=== PATIENT | female | born 1980 | race Caucasian/White ===

== ENCOUNTER 2017-07-09 | Emergency (ER) | payer OTHER, SELFPAY ==
--- NOTE | 2017-07-09 20:46 | ER ---
Nurse's Notes [facility] Name: Adina Block Age: 36 yrs Sex: Female : 1980 Arrival Date: 07/09/2017 Time: 19:16 Bed 12 Private MD: Diagnosis: Insect bite left cheek Presentation: 07/09 19:35 Presenting complaint: Patient states: that she thinks she got bitten by something on fc her left cheek. Area is swollen and tender to touch. Denies any vision issues. But states that it is making her nauseated. Transition of care: patient was not received from another setting of care. Onset of symptoms was July 09, 2017. Care prior to arrival: Medication(s) given: Tylenol, last at 1530. 19:35 Method Of Arrival: Ambulatory 19:35 Acuity: RINA 3 Triage Assessment: 19:38 Bite description: bite sustained to left cheek is from insect was sustained 1 day ago. fc by an unknown animal, animal information: vaccination(s) is not applicable. General: Appears uncomfortable, slender, Behavior is calm, cooperative, appropriate for age. Pain: Complains of pain in left cheek and left eye Quality of pain is described as aching, Pain began 1 day ago. Is continuous. EENT: left eye socket pain. Neuro: Level of Consciousness is awake, alert, obeys commands, Oriented to person, place, time, situation. Cardiovascular: No deficits noted. Respiratory: No deficits noted. GI: No deficits noted. : No deficits noted. Derm: Skin is pink, warm \T\ dry. red raised bump to left upper cheek. Musculoskeletal: Circulation, motion, and sensation intact. Capillary refill < 3 seconds, Range of motion: intact in all extremities. 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 - Social history:: Smoking status: Patient uses tobacco products, smokes one-half pack cigarettes per day, Patient/guardian denies using alcohol, street drugs. Screenin:45 Abuse screen: Denies threats or abuse. Denies injuries from another. Nutritional ao screening: No deficits noted. Tuberculosis screening: No symptoms or risk factors identified. Fall Risk None identified. Assessment: 20:44 General: Appears in no apparent distress. comfortable, Behavior is calm, cooperative, ao appropriate for age. Pain: Denies pain. Neuro: Level of Consciousness is awake, alert, obeys commands, Oriented to person, place, time, situation, Appropriate for age Moves all extremities. Speech is normal, Facial symmetry appears normal. Cardiovascular: Patient's skin is warm and dry. Respiratory: Airway is patent Respiratory effort is even, unlabored, Respiratory pattern is regular, symmetrical. GI: Abdomen is non-distended. : No signs and/or symptoms were reported regarding the genitourinary system. EENT: No signs and/or symptoms were reported regarding the EENT system. Derm: Skin is intact, Rash noted that is red, on face. 20:55 Reassessment: Patient is alert, oriented x 3, equal unlabored respirations, skin bb warm/dry/pink. pt verbalized understanding of and agrees to plan of care discharge instructions given pt ambulated with steady gait to exit accompanied by family. Vital Signs: 19:37 BP 119 / 76; Pulse 86; Resp 18; Temp 98.6(O); Pulse Ox 100% on R/A; Weight 47.63 kg fc (R); Height 5 ft. 2 in. (157.48 cm) (R); Pain 6/10; 19:37 Body Mass Index 19.20 (47.63 kg, 157.48 cm) fc ED Course: 19:16 Patient arrived in ED. ds1 19:36 Triage completed. fc 19:37 Arm band placed on left wrist. Patient placed in waiting room, Patient notified of wait fc time. 20:36 Stiven River MD is Attending Physician. pkanam 20:43 Marcio Frazier, GRAEME is Primary Nurse. ao 20:45 Patient has correct armband on for positive identification. Pulse ox on. NIBP on. ao 20:56 No provider procedures requiring assistance completed. Patient did not have IV access bb during this emergency room visit. Administered Medications: No medications were administered Outcome: 20:46 Discharge ordered by . pkl 20:56 Discharged to home ambulatory, with family. alon 20:56 Condition: stable 20:56 Discharge instructions given to patient, family, Instructed on discharge instructions, follow up and referral plans. medication usage, Demonstrated understanding of instructions, follow-up care, medications, Prescriptions given X 2. 20:56 Patient left the ED. bb Signatures: Stiven River MD MD pkl Chretien, Felicia, RN RN Charito Sarmiento ds1 Kelsey Gonzalez RN RN Marcio Marte RN RN ao
--- NOTE | 2017-07-09 20:46 | EDPHYS ---
Physician Documentation [facility] Name: Adina Block Age: 36 yrs Sex: Female : 1980 Arrival Date: 07/09/2017 Time: 19:16 Bed 12 Private MD: ED Physician Stiven River HPI: 07/09 20:40 This 36 yrs old Female presents to ER via Ambulatory with complaints of pkl Insect Bite. 20:40 The patient was bitten on the left cheek, by unknown insect. Onset: The pkl symptoms/episode began/occurred today. Associated signs and symptoms: Pertinent positives: swelling at site, nausea. 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 - Social history:: Smoking status: Patient uses tobacco products, smokes one-half pack cigarettes per day, Patient/guardian denies using alcohol, street drugs. ROS: 20:40 Eyes: Negative for injury, pain, redness, and discharge, ENT: Negative for injury, pkl pain, and discharge, Neck: Negative for injury, pain, and swelling, Cardiovascular: Negative for chest pain, palpitations, and edema, Respiratory: Negative for shortness of breath, cough, wheezing, and pleuritic chest pain, Abdomen/GI: Negative for abdominal pain, nausea, vomiting, diarrhea, and constipation, Back: Negative for injury and pain, : Negative for injury, bleeding, discharge, and swelling, MS/Extremity: Negative for injury and deformity. 20:40 Skin: Positive for swelling, of the left cheek. 20:40 Neuro: Negative for altered mental status. Exam: 20:40 Eyes: Pupils equal round and reactive to light, extra-ocular motions intact. Lids and pkl lashes normal. Conjunctiva and sclera are non-icteric and not injected. Cornea within normal limits. Periorbital areas with no swelling, redness, or edema. ENT: Nares patent. No nasal discharge, no septal abnormalities noted. Tympanic membranes are normal and external auditory canals are clear. Oropharynx with no redness, swelling, or masses, exudates, or evidence of obstruction, uvula midline. Mucous membranes moist. 20:40 Head/face: Noted is swelling, that is mild, insect bite left cheek. 20:40 Neck: Exam negative for nuchal rigidity. 20:40 Chest/axilla: Exam negative for acute changes. 20:40 Cardiovascular: Rate: normal, Rhythm: regular. 20:40 Respiratory: the patient does not display signs of respiratory distress, Respirations: normal, Breath sounds: are clear throughout. 20:40 Abdomen/GI: Bowel sounds: normal, Palpation: abdomen is soft and non-tender, in all quadrants. 20:40 Back: Exam negative for acute changes. 20:40 : Exam negative for acute changes. 20:40 Musculoskeletal/extremity: Exam is negative for acute changes. 20:40 Neuro: Orientation: is normal, Mentation: is normal, Memory: is normal, Cranial nerves: grossly normal, Motor: is normal, Gait: is steady. Vital Signs: 19:37 BP 119 / 76; Pulse 86; Resp 18; Temp 98.6(O); Pulse Ox 100% on R/A; Weight 47.63 kg fc (R); Height 5 ft. 2 in. (157.48 cm) (R); Pain 6/10; 19:37 Body Mass Index 19.20 (47.63 kg, 157.48 cm) fc MDM: 20:36 Patient medically screened. pkl 20:40 Data reviewed: vital signs, nurses notes. pkl Administered Medications: No medications were administered Disposition: 07/09/17 20:46 Discharged to Home. Impression: Insect bite left cheek. - Condition is Stable. - Prescriptions for Zofran 4 mg Oral Tablet - take 1 tablet by ORAL route every 12 hours As needed; 6 tablet. Zithromax Z- Jalil 250 mg Oral Tablet - take 1 tablet by ORAL route as directed for 5 days Day 1 - take two (2) tablets one time. Day 2, 3, 4 , 5 take one (1) tablet once daily.; 6 tablet. - Work release form, Medication Reconciliation Form, Thank You Letter, Antibiotic Education, Prescription Opioid Use form. - Follow up: Private Physician; When: 2 - 3 days; Reason: Re-evaluation by your physician. - Problem is new. - Symptoms have improved. Signatures: Stiven River MD MD pkl Chretien, Felicia, RN RN Kelsey Mitchell RN RN bb
== END 2017-07-09 20:56 | disposition home or self-care (01) ==
CPT/HCPCS: 99283

== ENCOUNTER 2017-08-27 18:39 | Emergency (ER) | payer OTHER, SELFPAY ==
[2017-08-27 20:16] LABS: Urine Blood 1+ (NEG); Urine Glucose NEGATIVE (NEG); Urine Protein NEGATIVE (NEG); Urine Specific Gravity <1.005 (1.005-1.030)
[2017-08-27 20:36] LABS: Urine Appearance CLEAR; Urine Bilirubin NEGATIVE (NEG); Urine Blood 1+ (NEG); Urine Color YELLOW; Urine Glucose NEGATIVE (NEG); Urine Protein NEGATIVE (NEG); Urine Specific Gravity <=1.005 (1.005-1.030); Urine Urobilinogen 0.2 mg/dL (0.2-1.0); Urine pH 6.5 (5.0-7.0)
[2017-08-27 21:03] LABS: Urine Microscopic Reflex ORDER UMIC
[2017-08-27 21:06] LABS: Urine Bacteria NONE SEEN /HPF (<20); Urine RBC <5 /HPF (NONE SEEN)
[2017-08-27 21:07] LABS: Urine Culture Reflex Order NOT NEEDED
[2017-08-27] MEDS ORDERED: KETOROLAC 30 MG/ML INJ ONE (21:22)
--- NOTE | 2017-08-27 22:04 | RAD REPORT ---
EXAM DESCRIPTION: CT - Stone Protocol - 08/27/2017 9:37 pm CLINICAL HISTORY: Back pain, flank pain COMPARISON: None. TECHNIQUE: Axial 5 mm thick images were obtained without oral or IV contrast. The [id number] span s the entirety of the system partially obscuring uppermost abdomen and lung bases. All CT scans are performed using dose optimization technique as appropriate and may include automated exposure control or mA/KV adjustment according to patient size. FINDINGS: Mild right-sided hydronephrosis secondary to a 3 millimeter UVJ calculus. No left-sided ob structing calculi. Punctate 1 mm caliceal or pyramid calculi noted on the right. Right kidney is slig htly edematous when compared to the left. No suspicious renal masses. Isodense masses and pyelonephri tis are not excluded on a stone protocol CT scan. No urinary bladder suspicious finding. Multiple phl eboliths along the pelvic floor. Imaged portions of the liver, spleen and pancreas show no suspicious findings on non-contrast imaging . No gallbladder or biliary tree abnormality identified. No significant adrenal finding. No suspicious bowel findings. No hernia, mass or bulky lymphadenopathy noted. No free air, free fluid or inflammatory stranding. No significant bony abnormality. IMPRESSION: Mild right-sided hydronephrosis secondary to a 3 mm UVJ calculus. Isodense masses and pyelonephritis are not excluded on stone protocol technique.
--- NOTE | 2017-08-27 22:27 | ER ---
Nurse's Notes [facility] Name: Adina Block Age: 36 yrs Sex: Female : 1980 Arrival Date: 08/27/2017 Time: 18:40 Bed 16 Private MD: Diagnosis: Calculus of ureter Presentation: 08/27 19:02 Presenting complaint: Presenting complaint: Patient states: Lower abdominal and hb bilateral lower back pain since this morning. Also c/o N/V. 19:05 Transition of care: patient was not received from another setting of care. Onset of hb symptoms was August 27, 2017. 19:05 Method Of Arrival: Ambulatory hb 19:05 Acuity: RINA 3 hb 22:41 Initial Sepsis Screen: Does the patient meet any 2 criteria? No. Patient's initial bs1 sepsis screen is negative. Does the patient have a suspected source of infection? No. Patient's initial sepsis screen is negative. Care prior to arrival: None. 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 - Social history:: Smoking status: Patient uses tobacco products, smokes one pack cigarettes per day. Screenin:41 Abuse screen: Denies threats or abuse. Denies injuries from another. Nutritional bs1 screening: No deficits noted. Tuberculosis screening: No symptoms or risk factors identified. Fall Risk None identified. Assessment: 19:58 General: Appears in no apparent distress. uncomfortable, slender, Behavior is bs1 cooperative, anxious, Smells of smoke. Pain: Complains of pain in right/left lower abdomen Pain radiates to right flank Pain currently is 10 out of 10 on a pain scale. Neuro: Level of Consciousness is awake, alert, obeys commands, Oriented to person, place, time, situation, Appropriate for age Stitcher Special Machine are equal bilaterally Moves all extremities. Gait is steady, Speech is normal, Facial symmetry appears normal, Pupils are PERRLA. Cardiovascular: Denies chest pain, shortness of breath, Heart tones S1 S2 present Capillary refill < 3 seconds Patient's skin is warm and dry. Respiratory: Airway is patent Trachea midline Respiratory effort is even, unlabored, Breath sounds are clear bilaterally. GI: Abdomen is flat, Bowel sounds hypoactive in right upper quadrant, left upper quadrant, right lower quadrant and left lower quadrant Abdomen is tender to palpation in right lower quadrant and left lower quadrant Reports lower abdominal pain, nausea. : Reports burning with urination. EENT: No deficits noted. No signs and/or symptoms were reported regarding the EENT system. Derm: Skin is intact, Skin is pink, warm \T\ dry. Musculoskeletal: Circulation, motion, and sensation intact. Capillary refill < 3 seconds, Range of motion: intact in all extremities. 21:00 Reassessment: No changes from previously documented assessment. Patient and/or family bs1 updated on plan of care and expected duration. Pain level reassessed. Patient is alert, oriented x 3, equal unlabored respirations, skin warm/dry/pink. Pending results of CT scan. 22:30 Reassessment: Patient appears in no apparent distress at this time. Patient and/or bs1 family updated on plan of care and expected duration. Pain level reassessed. Patient is alert, oriented x 3, equal unlabored respirations, skin warm/dry/pink. Patient states feeling better. Vital Signs: 19:06 BP 151 / 70; Pulse 85; Resp 16; Temp 98.6; Pulse Ox 100% on R/A; Weight 49.9 kg; Height hb 5 ft. 2 in. (157.48 cm); Pain 8/10; 20:00 BP 124 / 80; Pulse 78; Resp 16; Pulse Ox 100% on R/A; bs1 21:00 BP 102 / 60; Pulse 70; Resp 16; Pulse Ox 99% on R/A; bs1 22:00 BP 108 / 67; Pulse 61; Pulse Ox 100% on R/A; bs1 22:15 BP 108 / 59; Pulse 69; Resp 16; Temp 98.3(O); Pulse Ox 100% on R/A; Pain 0/10; bs1 19:06 Body Mass Index 20.12 (49.90 kg, 157.48 cm) hb ED Course: 18:40 Patient arrived in ED. al2 19:06 Triage completed. hb 19:06 Arm band placed on right wrist. hb 19:46 Charanjit Barnes MD is Attending Physician. tw4 19:50 Cayden Gordon, RN is Primary Nurse. jd3 20:45 No provider procedures requiring assistance completed. Inserted saline lock: 22 gauge bs1 in left antecubital area, using aseptic technique. 21:37 CT completed. Patient tolerated procedure well. Patient moved to CT via wheelchair. kw1 Patient moved back from CT. 21:37 Stone Protocol In Process Unspecified. EDMS 22:26 Mayra Vences MD is Referral Physician. tw4 22:41 Patient has correct armband on for positive identification. Bed in low position. Call bs1 light in reach. Side rails up X 1. Pulse ox on. NIBP on. 22:42 IV discontinued, bleeding controlled, No redness/swelling at site. Pressure dressing bs1 applied. Administered Medications: 21:46 Drug: TORadol 60 mg {Note: Given IV.} Route: IM; Site: Other; bs1 22:45 Follow up: Response: No adverse reaction bs1 Outcome: 22:26 Discharge ordered by . tw4 22:42 Discharged to home ambulatory, with family, with significant other. bs1 22:42 Condition: stable 22:42 Discharge instructions given to patient, Instructed on discharge instructions, follow up and referral plans. medication usage, Demonstrated understanding of instructions, follow-up care, medications, Prescriptions given X 2. 22:46 Patient left the ED. bs1 Signatures: Dispatcher [employer] EDMS Lety Boyce RN RN hb Cayden Gordon, RN RN jTracy Shelley kw1 Michell Zamudio RN RN bs1 Cindy Thurman Terrence, MD MD tw4 Corrections: (The following items were deleted from the chart) 19:06 19:02 Presenting complaint: hb hb
--- NOTE | 2017-08-27 22:27 | EDPHYS ---
Physician Documentation [facility] Name: Adina Block Age: 36 yrs Sex: Female : 1980 Arrival Date: 08/27/2017 Time: 18:40 Bed 16 Private MD: ED Physician Charanjit Barnes HPI: 08/27 22:34 This 36 yrs old Female presents to ER via Ambulatory with complaints of Low tw4 Back Pain, Abdominal Pain. 22:34 This 36 yrs old Female presents to ER via Ambulatory with complaints of Low tw4 Back Pain, Abdominal Pain. 22:34 The patient presents with pain that is acute, with no known mechanism of injury. The tw4 symptoms are located in the low back. The pain does not radiate. The problem was sustained without known cause. Onset: The symptoms/episode began/occurred today. Modifying factors: The patient symptoms are alleviated by nothing, the patient symptoms are aggravated by any movement. Associated signs and symptoms: The patient has no apparent associated signs or symptoms. Severity of symptoms: At their worst the symptoms were moderate, in the emergency department the symptoms are unchanged. The patient has not experienced similar symptoms in the past. 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 - Social history:: Smoking status: Patient uses tobacco products, smokes one pack cigarettes per day. ROS: 22:34 Constitutional: Negative for fever, chills, and weight loss, Eyes: Negative for injury, tw4 pain, redness, and discharge, Cardiovascular: Negative for chest pain, palpitations, and edema, Respiratory: Negative for shortness of breath, cough, wheezing, and pleuritic chest pain, Abdomen/GI: Negative for abdominal pain, nausea, vomiting, diarrhea, and constipation. 22:34 MS/Extremity: Negative for injury and deformity, Neuro: Negative for headache, weakness, numbness, tingling, and seizure, Psych: Negative for depression, anxiety, suicide ideation, homicidal ideation, and hallucinations. 22:34 Back: Positive for flank pain, on the right, radiated pain. Exam: 22:34 Constitutional: This is a well developed, well nourished patient who is awake, alert, tw4 and in no acute distress. Chest/axilla: Normal chest wall appearance and motion. Nontender with no deformity. No lesions are appreciated. Cardiovascular: Regular rate and rhythm with a normal S1 and S2. No gallops, murmurs, or rubs. Normal PMI, no JVD. No pulse deficits. Respiratory: Lungs have equal breath sounds bilaterally, clear to auscultation and percussion. No rales, rhonchi or wheezes noted. No increased work of breathing, no retractions or nasal flaring. Abdomen/GI: Soft, non-tender, with normal bowel sounds. No distension or tympany. No guarding or rebound. No evidence of tenderness throughout. MS/ Extremity: Pulses equal, no cyanosis. Neurovascular intact. Full, normal range of motion. Neuro: Awake and alert, GCS 15, oriented to person, place, time, and situation. Cranial nerves II-XII grossly intact. Motor strength 5/5 in all extremities. Sensory grossly intact. Cerebellar exam normal. Normal gait. 22:34 Back: CVA tenderness, that is mild, is noted on the right. Vital Signs: 19:06 BP 151 / 70; Pulse 85; Resp 16; Temp 98.6; Pulse Ox 100% on R/A; Weight 49.9 kg; Height hb 5 ft. 2 in. (157.48 cm); Pain 8/10; 20:00 BP 124 / 80; Pulse 78; Resp 16; Pulse Ox 100% on R/A; bs1 21:00 BP 102 / 60; Pulse 70; Resp 16; Pulse Ox 99% on R/A; bs1 22:00 BP 108 / 67; Pulse 61; Pulse Ox 100% on R/A; bs1 22:15 BP 108 / 59; Pulse 69; Resp 16; Temp 98.3(O); Pulse Ox 100% on R/A; Pain 0/10; bs1 19:06 Body Mass Index 20.12 (49.90 kg, 157.48 cm) hb MDM: 19:46 Patient medically screened. tw4 22:35 Differential diagnosis: arthritis, strain. Data reviewed: vital signs, nurses notes. tw4 Data interpreted: Pulse oximetry: Interpretation: normal. Counseling: I had a detailed discussion with the patient and/or guardian regarding: the historical points, exam findings, and any diagnostic results supporting the discharge/admit diagnosis. Medication response: Toradol relieved patient's pain. The symptoms have resolved. Response to treatment: the patient's symptoms have markedly improved after treatment. Special discussion: I discussed with the patient/guardian in detail that at this point there is no indication for admission to the hospital. It is understood, however, that if the symptoms persist or worsen the patient needs to return immediately for re-evaluation. ED course: Pt states she feels better and IVF and analgesia. 08/27 20:01 Order name: Urinalysis; Complete Time: 22:20 tw4 08/27 20:09 Order name: Urine Dipstick--Ancillary (enter results); Complete Time: 20:34 mt 08/27 20:49 Order name: Test, Serum; Complete Time: 22:20 bs1 08/27 21:05 Order name: Stone Protocol; Complete Time: 22:20 EDMS 08/27 21:06 Order name: Urine Microscopic Only; Complete Time: 22:20 EDMS 08/27 20:01 Order name: Urine Test (obtain specimen); Complete Time: 21:47 tw4 Administered Medications: 21:46 Drug: TORadol 60 mg {Note: Given IV.} Route: IM; Site: Other; bs1 22:45 Follow up: Response: No adverse reaction bs1 Disposition: 08/27/17 22:26 Discharged to Home. Impression: Calculus of ureter. - Condition is Stable. - Discharge Instructions: Ureteral Colic, Ureteral Colic, [id number], Kidney Stones, [id number]. - Prescriptions for Tylenol- Codeine #3 300-30 mg Oral Tablet - take 2 tablet by ORAL route every 6 hours As needed; 30 tablet. Zofran 4 mg Oral Tablet - take 1 tablet by ORAL route every 12 hours As needed; 6 tablet. - Work release form, Medication Reconciliation Form, Thank You Letter, Antibiotic Education, Prescription Opioid Use form. - Follow up: Private Physician; When: As needed; Reason: Recheck today's complaints, Continuance of care, Re-evaluation by your physician. Follow up: Mayra Vences MD; When: As needed; Reason: Recheck today's complaints, Continuance of care, Re-evaluation by your physician. - Problem is new. - Symptoms have improved. Signatures: Dispatcher [employer] [facility] Lety Boyce, RN RN Michell Zamudio RN RN bs1 Charanjit Barnes MD MD tw4 Corrections: (The following items were deleted from the chart) 21:05 20:47 Abdomen Pelvis Wo Con+CT.[id number].BRZ ordered. EDNY EDNY 22:46 22:26 08/27/2017 22:26 Discharged to Home. Impression: Calculus of ureter. Condition is bs1 Stable. Forms are Medication Reconciliation Form, Thank You Letter, Antibiotic Education, Prescription Opioid Use. Follow up: Private Physician; When: As needed; Reason: Recheck today's complaints, Continuance of care, Re-evaluation by your physician. Follow up: Mayra Vences; When: As needed; Reason: Recheck today's complaints, Continuance of care, Re-evaluation by your physician. Problem is new. Symptoms have improved. tw4
== END 2017-08-27 22:46 | disposition home or self-care (01) ==
LOC: ER 18:39
DX: N20.1 Calculus of ureter (principal); F17.210 Nicotine dependence, cigarettes, uncomplicated; Z88.0 Allergy status to penicillin; Z88.6 Allergy status to analgesic agent
CPT/HCPCS: 36415; 74176; 76377; 81003; 81015; 84703; 96372; 99284

== ENCOUNTER 2018-09-20 15:47 | Emergency (ER) | payer SELFPAY ==
--- NOTE | 2018-09-20 16:20 | ER ---
Nurse's Notes [facility] Name: Adina Block Age: 38 yrs Sex: Female : 1980 Arrival Date: 09/20/2018 Time: 15:52 Bed 19 Private MD: Diagnosis: Strain of muscle, fascia and tendon at neck level Presentation: 09/20 15:53 Presenting complaint: Patient states: neck pain and upper back pain that began aa5 yesterday. Pt states "I do a lot of lifting at work so maybe I hurt it doing some lifting". Pt states "it hurts to even move my head side to side". Transition of care: patient was not received from another setting of care. Onset of symptoms was September 2018. Risk Assessment: Do you want to hurt yourself or someone else? Patient reports no desire to harm self or others. Initial Sepsis Screen: Does the patient meet any 2 criteria? No. Patient's initial sepsis screen is negative. Does the patient have a suspected source of infection? No. Patient's initial sepsis screen is negative. Care prior to arrival: None. 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 - Social history:: Smoking status: Patient uses tobacco products, denies chronic smoking, but will smoke occasionally. - Ebola Screening: : No symptoms or risks identified at this time. Screenin:03 Abuse screen: Denies threats or abuse. Nutritional screening: No deficits noted. em Tuberculosis screening: No symptoms or risk factors identified. Fall Risk None identified. Assessment: 16:10 General: Appears in no apparent distress. comfortable, Behavior is calm, cooperative, em Denies fever, reports stiff neck since yesterday after sleeping. Pain: Complains of pain in neck Pain currently is 6 out of 10 on a pain scale. Neuro: Level of Consciousness is awake, alert, obeys commands, Oriented to person, place, time, situation. Cardiovascular: Capillary refill < 3 seconds Patient's skin is warm and dry. Respiratory: Airway is patent Respiratory effort is even, unlabored, Respiratory pattern is regular, symmetrical. Derm: Skin is intact, is healthy with good turgor, Skin is pink, warm \\T\\ dry. Musculoskeletal: Capillary refill < 3 seconds, Range of motion: limited in neck. Vital Signs: 15:56 BP 109 / 62; Pulse 83; Resp 16 S; Temp 98.2(O); Pulse Ox 98% on R/A; Pain 6/10; aa5 ED Course: 15:52 Patient arrived in ED. mr 15:53 Arm band placed on. aa5 15:55 Triage completed. aa5 15:58 Derek Agudelo PA is PHCP. [facility] 15:58 Kit Montemayor MD is Attending Physician. [facility] 16:02 Nestor Archuleta LVN is Primary Nurse. em 16:40 No provider procedures requiring assistance completed. Patient did not have IV access ss during this emergency room visit. 16:41 Patient has correct armband on for positive identification. Bed in low position. Call ss light in reach. Adult w/ patient. Pulse ox on. NIBP on. Administered Medications: 16:19 Drug: Valium 5 mg Route: PO; em 16:41 Follow up: Response: No adverse reaction ss Outcome: 16:21 Discharge ordered by . [facility] 16:40 Discharged to home ambulatory, with family. ss 16:40 Condition: good 16:40 Discharge instructions given to patient, Instructed on discharge instructions, follow up and referral plans. medication usage, Demonstrated understanding of instructions, follow-up care, medications, Prescriptions given X 1. 16:42 Patient left the ED. ss Signatures: Derek Agudelo PA PA jmm Gabby Cheung Nestor Archuleta LVN LVN em Blanca Rust, GRAEME RN aa5 Sondra Aguirre RN RN ss Corrections: (The following items were deleted from the chart) 15:57 15:56 Pulse 83bpm; Resp 16bpm; Spontaneous; Pulse Ox 98% RA; Temp 98.2F Oral; Pain aa5 10; aa5
--- NOTE | 2018-09-20 16:20 | EDPHYS ---
Physician Documentation [facility] Name: Adina Block Age: 38 yrs Sex: Female : 1980 Arrival Date: 09/20/2018 Time: 15:52 Bed 19 Private MD: ED Physician Kit Montemayor HPI: 09/20 16:15 This 38 yrs old Female presents to ER via Ambulatory with complaints of Stiff jmm Neck. 16:15 The patient or guardian complains of pain, that is acute. Onset: The symptoms/episode jmm began/occurred yesterday. Context: The problem was sustained at work, The neck injury/problem resulted from lifting. Associated signs and symptoms: Pertinent negatives: fever, numbness, tingling, weakness. The pain does not radiate. This is a 38 year old female with a history of chronic neck pain presents to the ED with complaints of bilateral neck pain which occurred after lifting yesterday at work. Patient denies weakness or numbness to her extremities. . 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 - Social history:: Smoking status: Patient uses tobacco products, denies chronic smoking, but will smoke occasionally. - Ebola Screening: : No symptoms or risks identified at this time. ROS: 16:15 Constitutional: Negative for fever, chills, and weight loss. jmm 16:15 Cardiovascular: Negative for chest pain, palpitations, and edema, Respiratory: Negative for shortness of breath, cough, wheezing, and pleuritic chest pain. 16:15 Neck: Positive for pain with movement. 16:15 Neuro: Negative for weakness. 16:15 All other systems are negative. Exam: 16:15 Head/Face: atraumatic. Eyes: EOMI, no conjunctival erythema appreciated ENT: Moist jmm Mucus Membranes Chest/axilla: Normal chest wall appearance and motion. Cardiovascular: Regular rate and rhythm. No edema appreciated Respiratory: Normal respirations, no respiratory distress appreciated Abdomen/GI: Non distended, soft Back: Normal ROM Skin: General appearance color normal 16:15 MS/ Extremity: Moves all extremities, no obvious deformities appreciated, no edema noted to the lower extremities Neuro: Awake and alert, normal gait Psych: Behavior is normal, Mood is normal, Patient is cooperative and pleasant 16:15 Constitutional: The patient appears in no acute distress, alert, awake. 16:15 Neck: painful rotation noted, paraspinal tenderness, non midline tenderness is appreciated, full driver operator strength bilaterally, trapezius tender to palpation bilaterally. Vital Signs: 15:56 BP 109 / 62; Pulse 83; Resp 16 S; Temp 98.2(O); Pulse Ox 98% on R/A; Pain 6/10; aa5 MDM: 16:06 Patient medically screened. marybel 16:19 Data reviewed: vital signs, nurses notes. Counseling: I had a detailed discussion with marybel the patient and/or guardian regarding: the historical points, exam findings, and any diagnostic results supporting the discharge/admit diagnosis, the need for outpatient follow up, to return to the emergency department if symptoms worsen or persist or if there are any questions or concerns that arise at home. ED course: Patient is alert and non toxic in appearance. Patient is afebrile. Symptoms appear musculoskeletal. Patient is advised to follow up with pcp and otherwise given strict return precautions. Patient understood and agrees with the plan of care. . Administered Medications: 16:19 Drug: Valium 5 mg Route: PO; em 16:41 Follow up: Response: No adverse reaction ss Disposition: 09/21 07:27 Co-signature as Attending Physician, Kit Montemayor MD. rn Disposition: 09/20/18 16:21 Discharged to Home. Impression: Strain of muscle, fascia and tendon at neck level. - Condition is Stable. - Discharge Instructions: Muscle Strain. - Prescriptions for Zanaflex 4 mg Oral Tablet - take 1 tablet by ORAL route every 8 hours As needed; 20 tablet. - Medication Reconciliation Form, Thank You Letter, Antibiotic Education, Prescription Opioid Use, Family Work Release form. - Follow up: Private Physician; When: 2 - 3 days; Reason: Recheck today's complaints, Continuance of care, Re-evaluation by your physician. Signatures: Derek Agudelo PA PA jmm Munoz, Nestor, VACUUM DRIER OPERATOR VACUUM DRIER OPERATOR Kit Sheppard MD MD rn Blanca Rust, RN RN aa5 Sondra Aguirre RN RN ss Corrections: (The following items were deleted from the chart) 09/20 16:42 16:21 09/20/2018 16:21 Discharged to Home. Impression: Strain of muscle, fascia and ss tendon at neck level. Condition is Stable. Forms are Medication Reconciliation Form, Thank You Letter, Antibiotic Education, Prescription Opioid Use. Follow up: Private Physician; When: 2 - 3 days; Reason: Recheck today's complaints, Continuance of care, Re-evaluation by your physician. marybel
[2018-09-20] MEDS ORDERED: DIAZEPAM 5 MG TABLET ONE (16:30)
== END 2018-09-20 16:42 | disposition home or self-care (01) ==
LOC: ER 15:47
DX: S16.1XXA Strain of muscle, fascia and tendon at neck level, initial encounter (principal); X50.9XXA Other and unspecified overexertion or strenuous movements or postures, initial encounter; Y93.89 Activity, other specified; Y92.89 Other specified places as the place of occurrence of the external cause; Y99.8 Other external cause status; Z88.0 Allergy status to penicillin; Z88.5 Allergy status to narcotic agent; Z88.6 Allergy status to analgesic agent
CPT/HCPCS: 99283

== ENCOUNTER 2018-10-01 13:25 | Emergency (ER) | payer SELFPAY ==
--- NOTE | 2018-10-01 14:20 | ER ---
Nurse's Notes [facility] Name: Adina Block Age: 38 yrs Sex: Female : 1980 Arrival Date: 10/01/2018 Time: 13:27 Bed 9 Private MD: Diagnosis: Strain of muscle, fascia and tendon at neck level Presentation: 10/01 13:33 Presenting complaint: Patient states: hx of neck surgery 2017; "my neck and shoulder hj still hurts and lately i lifted heavy stuff and it triggered pain on my neck and shoulder; pain is 8/10; i used to take muscle relaxant and i ran out of it;. Transition of care: patient was not received from another setting of care. Onset of symptoms was October 01, 2018. Risk Assessment: Do you want to hurt yourself or someone else? Patient reports no desire to harm self or others. Initial Sepsis Screen: Does the patient meet any 2 criteria? No. Patient's initial sepsis screen is negative. Does the patient have a suspected source of infection? No. Patient's initial sepsis screen is negative. Care prior to arrival: None. 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 - Social history:: Smoking status: unknown. - Ebola Screening: : Patient denies exposure to infectious person Patient denies travel to an Ebola-affected area in the 21 days before illness onset. Screenin:12 Abuse screen: Denies threats or abuse. Denies injuries from another. Nutritional ss screening: No deficits noted. Tuberculosis screening: Never had TB. Fall Risk None identified. Assessment: 14:12 General: Appears in no apparent distress. comfortable, Behavior is calm, cooperative. ss Pain: Complains of pain in upper back, R side of neck Pain currently is 8 out of 10 on a pain scale. Quality of pain is described as aching, tender, pulling Is continuous, Aggravated by repositioning. Neuro: Level of Consciousness is awake, alert, obeys commands, Oriented to person, place, time, situation, Denies weakness blurred vision dizziness, numbness headache photophobia. Cardiovascular: Capillary refill < 3 seconds is brisk in bilateral fingers. Respiratory: Airway is patent Respiratory effort is even, unlabored, Respiratory pattern is regular, symmetrical. GI: No signs and/or symptoms were reported involving the gastrointestinal system. Patient currently denies. EENT: Oral mucosa is moist. Throat is clear. Derm: Skin is intact, is healthy with good turgor, Skin is dry, Skin is pink, warm \\T\\ dry. normal. Musculoskeletal: Circulation, motion, and sensation intact. Range of motion: intact in all extremities, Swelling absent. Vital Signs: 13:36 BP 103 / 53; Pulse 72; Resp 18; Temp 98.1(O); Pulse Ox 100% on R/A; Weight 52.16 kg; hj Height 5 ft. 2 in. (157.48 cm); Pain 8/10; 13:36 Body Mass Index 21.03 (52.16 kg, 157.48 cm) ED Course: 13:27 Patient arrived in ED. mr 13:36 Triage completed. hj 13:36 Arm band placed on right wrist. 13:52 Haim Olmedo PA is PHCP. cp 13:52 Octavio Murphy MD is Attending Physician. cp 14:12 Patient has correct armband on for positive identification. Bed in low position. Call ss light in reach. 14:29 Sondra Aguirre RN is Primary Nurse. ss 14:29 No provider procedures requiring assistance completed. Patient did not have IV access ss during this emergency room visit. Administered Medications: No medications were administered Outcome: 14:19 Discharge ordered by MD. cp 14:29 Discharged to home ambulatory, with family. ss 14:29 Condition: good 14:29 Discharge instructions given to patient, friend, Instructed on discharge instructions, follow up and referral plans. medication usage, Demonstrated understanding of instructions, follow-up care, medications, Prescriptions given X 1. 14:30 Patient left the ED. ss Signatures: Gabby Cheung mr Sondra Aguirre RN RN Jani Whitaker RN RN Haim Olmedo PA PA cp Corrections: (The following items were deleted from the chart) 13:38 13:36 Resp 18bpm; Pulse Ox 100% RA; Temp 98.1F Oral; 52.16 kg; Height 5 ft. 2 in.; BMI: hj 21.0; Pain 8/10; hj
--- NOTE | 2018-10-01 14:20 | EDPHYS ---
Physician Documentation [facility] Name: Adina Block Age: 38 yrs Sex: Female : 1980 Arrival Date: 10/01/2018 Time: 13:27 Bed 9 Private MD: ED Physician Octavio Murphy HPI: 10/01 14:11 This 38 yrs old Female presents to ER via Ambulatory with complaints of cp Shoulder Pain, Neck Problem, Medication Refill. 14:12 The patient or guardian complains of running out of pain medications, muscle relaxer, cp pain, that is chronic, tenderness. The symptoms are located on the neck and upper back area. Context: Patient reports history of neck surgery about 2 years ago and reports stiffness and pain worse after working. Associated signs and symptoms: Pertinent negatives: chills, fever, headache, nausea, numbness, tingling, vomiting, weakness. The pain does not radiate. 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 - Social history:: Smoking status: unknown. - Ebola Screening: : Patient denies exposure to infectious person Patient denies travel to an Ebola-affected area in the 21 days before illness onset. ROS: 14:16 Constitutional: Negative for body aches, chills, fever. cp 14:16 ENT: Negative for drainage from ear(s), ear pain, sore throat, difficulty swallowing, difficulty handling secretions. 14:16 Neck: Positive for pain with movement, pain at rest, stiffness, tenderness, of the neck and upper back. 14:16 Cardiovascular: Negative for chest pain, edema, palpitations. 14:16 Respiratory: Negative for cough, shortness of breath, wheezing. 14:16 Abdomen/GI: Negative for abdominal pain, nausea, vomiting, and diarrhea. 14:16 Skin: Negative for cellulitis, rash. 14:16 Neuro: Negative for altered mental status, dizziness, headache, numbness, weakness. 14:16 All other systems are negative. Exam: 14:17 Constitutional: The patient appears in no acute distress, alert, awake, cp non-diaphoretic, non-toxic, well developed, well nourished. 14:17 Head/Face: Normocephalic, atraumatic. cp 14:17 Eyes: Periorbital structures: appear normal, Conjunctiva: normal, no exudate, no injection, Lids and lashes: appear normal, bilaterally. 14:17 ENT: External ear(s): are unremarkable, Nose: is normal, Mouth: is normal, Posterior pharynx: is normal, airway is patent. 14:17 Neck: External neck: tenderness, that is mild, of the left trapezius, lower cervical area and right trapezius, ROM/movement: limited range of motion, is not appreciated, nuchal rigidity, is not appreciated. 14:17 Chest/axilla: Inspection: normal. 14:17 Cardiovascular: Rate: normal. 14:17 Respiratory: the patient does not display signs of respiratory distress, Respirations: normal, no use of accessory muscles, no retractions, no splinting, no tachypnea, labored breathing, is not present, Breath sounds: are clear throughout, no decreased breath sounds, no stridor, no wheezing. 14:17 Back: pain, that is mild, of the left trapezius and right trapezius. 14:17 Neuro: Orientation: to person, place \T\ time. Mentation: is normal. Vital Signs: 13:36 BP 103 / 53; Pulse 72; Resp 18; Temp 98.1(O); Pulse Ox 100% on R/A; Weight 52.16 kg; hj Height 5 ft. 2 in. (157.48 cm); Pain 8/10; 13:36 Body Mass Index 21.03 (52.16 kg, 157.48 cm) hj MDM: 13:52 Patient medically screened. cp 14:18 Differential diagnosis: Cervical Disc Herniation Cervical Raiculopathy cervical strain, cp Spondylolisthesis Spondylosis torticollis. 14:18 Data reviewed: vital signs, nurses notes, and as a result, I will discharge patient. cp Administered Medications: No medications were administered Disposition: 14:31 Chart complete. cp 14:33 Co-signature as Attending Physician, Octavio Murphy MD I agree with the assessment and kdr plan of care. Disposition: 10/01/18 14:19 Discharged to Home. Impression: Strain of muscle, fascia and tendon at neck level. - Condition is Stable. - Discharge Instructions: Muscle Strain, Neck Exercises. - Prescriptions for Zanaflex 4 mg Oral Tablet - take 1 tablet by ORAL route every 8 hours As needed; 20 tablet. - Family Work Release, Medication Reconciliation Form, Thank You Letter, Antibiotic Education, Prescription Opioid Use form. - Follow up: Private Physician; When: 2 - 3 days; Reason: Recheck today's complaints. - Problem is an ongoing problem. - Symptoms are unchanged. Signatures: Octavio Murphy MD MD [facility] Sondra Aguirre RN RN ss Jani Whitaker RN RN Haim Garcia PA PA cp Corrections: (The following items were deleted from the chart) 14:11 13:52 Urine Dipstick-Ancillary ordered. cp 14:11 13:52 Urine Test ordered. cp ss 14:30 14:19 10/01/2018 14:19 Discharged to Home. Impression: Strain of muscle, fascia and ss tendon at neck level. Condition is Stable. Forms are Medication Reconciliation Form, Thank You Letter, Antibiotic Education, Prescription Opioid Use. Follow up: Private Physician; When: 2 - 3 days; Reason: Recheck today's complaints. Problem is an ongoing problem. Symptoms are unchanged. cp
== END 2018-10-01 14:30 | disposition home or self-care (01) ==
LOC: ER 13:25
DX: S16.1XXA Strain of muscle, fascia and tendon at neck level, initial encounter (principal); Z88.6 Allergy status to analgesic agent; Z88.5 Allergy status to narcotic agent; Z88.0 Allergy status to penicillin
CPT/HCPCS: 99282

== ENCOUNTER 2021-08-27 11:29 | Emergency (ER) | payer SELFPAY ==
--- NOTE | 2021-08-27 12:57 | ER ---
Nurse's Notes [facility] Name: Adina Walker Age: 40 yrs Sex: Female : 1980 Arrival Date: 08/27/2021 Time: 11:31 Bed 10 Private MD: Diagnosis: Impetigo, unspecified Presentation: 08/27 11:50 Chief complaint: Patient states: sore under nose X 3 months ,started out as blackhead iw and she's been picking at it. Coronavirus screen: At this time, the client does not indicate any symptoms associated with coronavirus-19. Ebola Screen: Patient negative for fever greater than or equal to 101.5 degrees Fahrenheit, and additional compatible Ebola Virus Disease symptoms Patient denies exposure to infectious person. Patient denies travel to an Ebola-affected area in the 21 days before illness onset. No symptoms or risks identified at this time. Initial Sepsis Screen: Does the patient meet any 2 criteria? No. Patient's initial sepsis screen is negative. Does the patient have a suspected source of infection? No. Patient's initial sepsis screen is negative. Risk Assessment: Do you want to hurt yourself or someone else? Patient reports no desire to harm self or others. Onset of symptoms was May 2021. 11:50 Method Of Arrival: Ambulatory iw 11:50 Acuity: RINA 4 iw Historical: - Allergies: 11:52 PENICILLINS; iw 11:52 Aspirin; iw 11:52 Tramadol HCl; iw - Home Meds: 11:52 None [Active]; iw - PMHx: 11:52 None; iw - PSHx: 11:52 hysterectomy; pin in C4-C5; Tonsillectomy; iw - Immunization history:: Adult Immunizations unknown. - Social history:: Smoking status: unknown Patient uses. Screenin:53 Abuse screen: Denies threats or abuse. Denies injuries from another. Nutritional iw screening: No deficits noted. Tuberculosis screening: No symptoms or risk factors identified. Fall Risk None identified. Assessment: 11:53 General: Appears in no apparent distress. Behavior is calm, cooperative. Pain: iw Complains of pain in nose. Neuro: Corbett Agitation-Sedation Scale (RASS): Level of Consciousness is awake, alert, obeys commands, Oriented to person, place, time, situation, Moves all extremities. Full function. Derm: Abscess located on right nostril. Musculoskeletal: Range of motion: intact in all extremities. Vital Signs: 11:50 BP 112 / 64; Pulse 76; Resp 16; Temp 98.1; Pulse Ox 100% on R/A; Weight 49.9 kg; Height iw 5 ft. 2 in. (157.48 cm); 11:50 Body Mass Index 20.12 (49.90 kg, 157.48 cm) iw ED Course: 11:31 Patient arrived in ED. am2 11:52 Triage completed. iw 11:53 Arm band placed on. iw 11:54 Chayo Webb, GRAEME is Primary Nurse. iw 12:16 Haim Olmedo PA is PHCP. cp 12:16 Conrad Magdaleno MD is Attending Physician. cp 12:56 Ventura Coy MD is Referral Physician. cp 13:09 No provider procedures requiring assistance completed. Patient did not have IV access iw during this emergency room visit. Administered Medications: No medications were administered Medication: 11:55 VIS not applicable for this client. iw Outcome: 12:56 Discharge ordered by MD. cp 13:10 Discharged to home ambulatory, with family. iw 13:10 Condition: good 13:10 Discharge instructions given to patient, Instructed on discharge instructions, follow up and referral plans. medication usage, Demonstrated understanding of instructions, follow-up care, medications, Prescriptions given X 2. 13:11 Patient left the ED. em1 Signatures: Chayo Webb, GRAEME RN Robert Alfonso em1 Haim Olmedo PA PA cp Moreno, Amanda am2
--- NOTE | 2021-08-27 12:57 | EDPHYS ---
Physician Documentation [facility] Name: Adina Walker Age: 40 yrs Sex: Female : 1980 Arrival Date: 08/27/2021 Time: 11:31 Bed 10 Private MD: ED Physician Conrad Magdalneo HPI: 08/27 12:53 This 40 yrs old Female presents to ER via Ambulatory with complaints of Skin Problem - cp under nose. 12:54 skin problem. Onset: The symptoms/episode began/occurred 3 month(s) ago. Possible cp cause(s): unknown. Associated signs and symptoms: Pertinent positives: swelling, Pertinent negatives: discharge, drainage, fever. Historical: - Allergies: 11:52 PENICILLINS; iw 11:52 Aspirin; iw 11:52 Tramadol HCl; iw - Home Meds: 11:52 None [Active]; iw - PMHx: 11:52 None; iw - PSHx: 11:52 hysterectomy; pin in C4-C5; Tonsillectomy; iw - Immunization history:: Adult Immunizations unknown. - Social history:: Smoking status: unknown Patient uses. ROS: 12:54 Constitutional: Negative for body aches, chills, fever. cp 12:54 Skin: Positive for erythema, swelling, of the right nasal area. Exam: 12:55 Constitutional: The patient appears in no acute distress, alert, awake, comfortable, cp non-toxic, well developed, well nourished. 12:55 Skin: rash a mild rash is noted, consistent with impetigo, on the right nasal area. cp 12:55 ENT: External ear(s): are unremarkable, Ear canal(s): are normal, clear, TM's: cp dullness, bilaterally, Mouth: Lips: moist, Oral mucosa: moist, Posterior pharynx: Airway: no evidence of obstruction, patent. 12:55 Cardiovascular: Rate: normal. 12:55 Respiratory: the patient does not display signs of respiratory distress, Respirations: normal, no use of accessory muscles, labored breathing, is not present. 12:55 Abdomen/GI: Exam negative for discomfort, distension, guarding, Inspection: abdomen appears normal. Vital Signs: 11:50 BP 112 / 64; Pulse 76; Resp 16; Temp 98.1; Pulse Ox 100% on R/A; Weight 49.9 kg; Height iw 5 ft. 2 in. (157.48 cm); 11:50 Body Mass Index 20.12 (49.90 kg, 157.48 cm) iw MDM: 12:21 Patient medically screened. cp 12:50 Differential diagnosis: abscess, cellulitis. cp 12:56 Data reviewed: vital signs, nurses notes. cp 12:56 Counseling: I had a detailed discussion with the patient and/or guardian regarding: the cp historical points, exam findings, and any diagnostic results supporting the discharge/admit diagnosis, to return to the emergency department if symptoms worsen or persist or if there are any questions or concerns that arise at home. Administered Medications: No medications were administered Disposition: 18:03 Co-signature as Attending Physician, Conrad Magdaleno MD. ma2 Disposition Summary: 08/27/21 12:56 Discharge Ordered Location: Home cp Problem: new cp Symptoms: have improved cp Condition: Stable cp Diagnosis - Impetigo, unspecified cp Followup: cp - With: Ventura Coy MD - When: 1 week - Reason: if skin infection continues Discharge Instructions: - Discharge Summary Sheet cp - Impetigo, Adult cp Forms: - Medication Reconciliation Form cp - Thank You Letter cp - Antibiotic Education cp - Prescription Opioid Use cp - Work release form eb Prescriptions: - mupirocin 2 % Topical ointment - apply 1 application by TOPICAL route 3 times per day for 14 days; 30 gram; cp Refills: 0, Product Selection Permitted - Doxycycline Monohydrate 100 mg Oral Tablet - take 1 tablet by ORAL route every 12 hours for 10 days; 20 tablet; Refills: 0, cp Product Selection Permitted Signatures: Chayo Webb, RN RN Haim Carver PA PA cp Conrad Magdaleon MD MD ma2
[2021-08-27 19:10] VITALS: BP 112/64; TEMP 98.1; O2SAT 100
== END 2021-08-27 13:11 | disposition home or self-care (01) ==
LOC: ER 11:29
DX: L01.00 Impetigo, unspecified (principal); Z88.0 Allergy status to penicillin; Z88.5 Allergy status to narcotic agent; Z88.6 Allergy status to analgesic agent
CPT/HCPCS: 99282